=== PATIENT | female | born 1990 | race African-American/Black ===

== ENCOUNTER 2018-01-10 22:43 | Emergency (ER) | payer SELFPAY ==
[2018-01-11 00:35] LABS: APPEARANCE,URINE SLIGHTLY-CLOUDY; BILIRUBIN,URINE NEGATIVE (NEGATIVE); COLOR,URINE YELLOW; GLUCOSE, URINE NEGATIVE (NEGATIVE); KETONES,URINE NEGATIVE (NEGATIVE); LEUKOCYTE ESTERASE,URINE NEGATIVE (NEGATIVE); NITRITE,URINE NEGATIVE (NEGATIVE); PROTEIN,URINE NEGATIVE (NEGATIVE); URINE SPECIFIC GRAVITY 1.026
[2018-01-11] MEDS ORDERED: KETOROLAC TROMETHAMINE 60 MG/2 ML SDV IM ONE (01:07)
[2018-01-11] MEDS ORDERED: LIDOCAINE 5% (700 MG) TRANSDERMAL ADH..PATCH TP ONE (01:07)
--- NOTE | 2018-01-11 01:14 | ER Document Report ---
ED General - General Chief Complaint: Flank Pain Stated Complaint: BACK PAIN Time Seen by Provider: 01/11/18 00:06 Notes: Patient is a 27-year-old female without chronic medical problems who presents with 3 weeks of left flank pain. The patient describes the pain as an intermittent, throbbing, aching pain to the area. She starts states that if she lies in a certain position the pain seems to improve. Nothing seems to trigger the pain. No history of similar symptoms in the past. She denies any associated pleuritic pain, shortness of breath, nausea, vomiting, diarrhea, vaginal bleeding, dysuria or hematuria. She has not seen her general doctor regarding today's concerns. TRAVEL OUTSIDE OF THE [place] IN LAST 30 DAYS: No - Related Data Allergies/Adverse Reactions: No Known Allergies Allergy (Verified 01/10/18 22:44) Past Medical History - General Information source: Patient - Social History Smoking Status: Never Smoker Frequency of alcohol use: None Drug Abuse: None Lives with: Spouse/Significant other Family History: Reviewed & Not Pertinent Patient has suicidal ideation: No Patient has homicidal ideation: No Renal/ Medical History: Denies: Hx Peritoneal Dialysis Past Surgical History: Reports: Hx Tubal Ligation Review of Systems - Review of Systems Notes: Constitutional: Negative for fever. HENT: Negative for sore throat. Eyes: Negative for visual changes. Cardiovascular: Negative for chest pain. Respiratory: Negative for shortness of breath. Gastrointestinal: Negative for abdominal pain, vomiting or diarrhea. Genitourinary: Negative for dysuria. Musculoskeletal: Positive for left flank pain Skin: Negative for rash. Neurological: Negative for headaches, weakness or numbness. 10 point ROS negative except as marked above and in HPI. Physical Exam - Vital signs Vitals: Temp Pulse Resp BP Pulse Ox 97.9 F 70 16 123/69 99 01/10/18 22:49 01/10/18 22:49 01/10/18 22:49 01/10/18 22:49 01/10/18 22:49 Interpretation: Normal Notes: PHYSICAL EXAMINATION: GENERAL: Well-appearing, well-nourished and in no acute distress. HEAD: Atraumatic, normocephalic. EYES: Pupils equal round and reactive to light, extraocular movements intact, sclera anicteric, conjunctiva are normal. ENT: nares patent, oropharynx clear without exudates. Moist mucous membranes. NECK: Normal range of motion, supple without lymphadenopathy LUNGS: Breath sounds clear to auscultation bilaterally and equal. No wheezes rales or rhonchi. HEART: Regular rate and rhythm without murmurs ABDOMEN: Soft, nontender, normoactive bowel sounds. No guarding, no rebound. No masses appreciated. Mild left mid flank tenderness EXTREMITIES: Normal range of motion, no pitting or edema. No cyanosis. NEUROLOGICAL: No focal neurological deficits. Moves all extremities spontaneously and on command. PSYCH: Normal mood, normal affect. SKIN: Warm, Dry, normal turgor, no rashes or lesions noted. Course - Re-evaluation Re-evalutation: 01/11/18 01:11 Patient presents with intermittent left mid low flank pain for the past 3 weeks. On exam the patient has mild tenderness to palpation in the left flank but her abdominal exam is completely benign with no areas of tenderness, rebound or guarding. She denies any abdominal pain. No midline spinal tenderness, step-offs or deformities. No obvious swelling, bruising or erythema to the area. Urinalysis clear without evidence of or pyonephritis. Clinical history as well as urinalysis is not consistent with acute nephrolithiasis. Patient is PERC criteria negative, I do not clinically suspect an acute pulmonary embolus. Symptoms appear most consistent with a musculoskeletal origin given the absence of any other symptoms that would be more consistent with a worrisome diagnosis. I have explained to the patient and her significant other at the bedside that there is diagnostic uncertainty regarding her presentation today but at this point based on vitals, urinalysis, physical examination and history it is unlikely to be from a life-threatening pathology. At this time will discharge with return precautions and follow-up recommendations. Verbal discharge instructions given a the bedside and opportunity for questions given. Medication warnings reviewed. Patient is in agreement with this plan and has verbalized understanding of return precautions and the need for primary care follow-up in the next 24-72 hours. - Vital Signs Vital signs: Temp Pulse Resp BP Pulse Ox 97.4 F 66 17 128/70 H 100 01/11/18 01:50 01/11/18 01:50 01/11/18 01:50 01/11/18 01:50 01/11/18 01:50 - Laboratory Laboratory results interpreted by me: 10/13/18 00:20 Urine Urobilinogen 2.0 H Discharge - Discharge Clinical Impression: Left flank pain Condition: Good Disposition: HOME, SELF-CARE Additional Instructions: The exact cause of your left flank pain is uncertain but appears to be likely related to muscles. Your urine is normal. The remainder of your exam is likewise normal. Please follow-up with your general doctor within the next 24- 48 hours. Return to the emergency department immediately if you develop vomiting, fever greater than 100.4 F, worsening of your pain, pain with urination, bloody urine, abdominal pain, or any other symptoms that are worrisome to you. Forms: Return to Work
[2018-01-11 01:53] VITALS: BP 128/70
== END 2018-01-11 01:52 | disposition home or self-care (01) ==
LOC: ER 22:43
DX: R10.9 Unspecified abdominal pain (principal); Z98.51 Tubal ligation status
CPT/HCPCS: 99284; 96372; 81025; 81001; J1885